=== PATIENT | male | born 1960 | race Caucasian/White ===

== ENCOUNTER 2016-11-15 09:00 | Emergency (ER) | payer OTHER ==
[~2016-11-15] VITALS: Ht 167.6 cm; Wt 79.4 kg
[~2016-11-15 09:00] MED LIST: ACETAMINOPHEN650 M4 PO; FLEXERIL10 MG PO; HYDROCODONE BITA5 GM PO; LEVOFLOXACIN750 MG PO; LIPITOR20 MG PO; LISINOPRIL20 MG PO; MOBIC PO; NORVASC10 MG PO; PREDNISONE1 MG PO; PRINIVIL40 MG PO; ULTRAM PO
== END 2016-11-15 11:35 | disposition home or self-care (01) ==
LOC: CED 09:00
DX: L02.31 Cutaneous abscess of buttock (principal); L03.317 Cellulitis of buttock; I10 Essential (primary) hypertension; F17.210 Nicotine dependence, cigarettes, uncomplicated; Z98.890 Other specified postprocedural states; Z86.73 Personal history of transient ischemic attack (TIA), and cerebral infarction without residual deficits
CPT/HCPCS: 99283